=== PATIENT | female | born 1975 | race Caucasian/White ===

== ENCOUNTER → 2017-01-18 | Outpatient (CLI) | payer BC ==
[~2017-01-18] MED LIST: MTRUNK PO; PRENTAB26 PO; SERT25TA PO; TYLUNK PO
== END | disposition home or self-care (01) ==
LOC: C.PAPS 10:22
PROVIDERS: ATTEND Obstetrics & Gynecology
DX: Z34.90 Encounter for supervision of normal pregnancy, unspecified, unspecified trimester (principal)